=== PATIENT | female | born 1995 | race Caucasian/White ===

== ENCOUNTER 2018-02-19 19:33 | Emergency (ER) | payer OTHER ==
--- NOTE | 2018-02-19 20:00 | PDOC ---
Rapid Medical Evaluation Time Seen by Provider: 02/19/18 19:48 Medical Evaluation: Allergies Allergy/AdvReac Type Severity Reaction Status Date / Time No Known Drug Allergies Allergy Verified 02/13/14 04:46 02/19/18 19:59 I have performed a brief in-person evaluation of this patient. The patient presents with a chief complaint of: right ear pain for 4 days Pertinent physical exam findings: No tenderness over tragus or mastoid. I have ordered the following: nothing The patient will proceed to the ED for further evaluation. Discharge Disposition - Diagnosis Ear pain, right - Referrals - Patient Instructions - Post Discharge Activity
[2018-02-19 20:05] VITALS: BP 109/62; PULSE 63; TEMP 97.5; BMI 21.7
--- NOTE | 2018-02-19 20:32 | PDOC ---
History of Present Illness - General Chief Complaint: Pain Stated Complaint: EAR PAIN Time Seen by Provider: 02/19/18 19:48 - History of Present Illness Initial Comments: 22-year-old female with bilateral ear pain 4 weeks and decreased hearing with no associated symptoms. 02/19/18 20:24 Past History - Past Medical History Allergies/Adverse Reactions: Allergies Allergy/AdvReac Type Severity Reaction Status Date / Time No Known Drug Allergies Allergy Verified 02/13/14 04:46 Home Medications: Ambulatory Orders Cetirizine HCl/Pseudoephedrine [Zyrtec-D Tablet] 1 each PO DAILY #30 tab.er.12h 02/19/18 Ciprofloxacin HCl 1 drop BID 7 Days #2.5 ml 02/19/18 Asthma: No Cancer: No Cardiac Disorders: No COPD: No Diabetes: No HTN: No Seizures: No Thyroid Disease: No - Suicide/Smoking/Psychosocial Hx Smoking History: Never smoked Have you smoked in the past 12 months: No Information on smoking cessation initiated: No Hx Alcohol Use: No Drug/Substance Use Hx: No Hx Substance Use Treatment: No Review of Systems - Review of Systems HEENTM: Yes: Ear Pain All Other Systems: Reviewed and Negative *Physical Exam - Vital Signs Last Vital Signs Temp Pulse Resp BP Pulse Ox 97.5 F L 63 20 109/62 99 02/19/18 20:01 02/19/18 20:01 02/19/18 20:01 02/19/18 20:01 02/19/18 20:01 - Physical Exam Comments: GENERAL: The patient is awake, alert, and fully oriented, in no acute distress. HEAD: Normal with no signs of trauma. EYES: Pupils equal, round and reactive to light, extraocular movements intact, sclera anicteric, conjunctiva clear. ENT: The right tympanic membrane and ear canal is normal the left ear canal is normal the tympanic membrane is obstructed by a cerumen plug, nares patent, oropharynx clear without exudates. Moist mucous membranes. NECK: Normal range of motion, supple without lymphadenopathy, JVD, or masses. LUNGS: Breath sounds equal, clear to auscultation bilaterally. No wheezes, and no crackles. HEART: Regular rate and rhythm, normal S1 and S2 without murmur, rub or gallop. ABDOMEN: Soft, nontender, normoactive bowel sounds. No guarding, no rebound. No masses. EXTREMITIES: Normal range of motion, no edema. No clubbing or cyanosis. No cords, erythema, or tenderness. NEUROLOGICAL: Cranial nerves II through XII grossly intact. Normal speech, normal gait. PSYCH: Normal mood, normal affect. SKIN: Warm, Dry, normal turgor, no rashes or lesions noted. 02/19/18 20:25 Medical Decision Making - Medical Decision Making The left ear canal was flushed out with hydrogen peroxide part of the cerumen plug was removed the tympanic membrane was normal her ear canal is irritated from cerumen removal. I will place her on eardrops to prevent infection and decongestant 02/19/18 20:25 02/19/18 20:32 Pt states there is no chance she is *DC/Admit/Observation/Transfer Diagnosis at time of Disposition: Ear pain, right, Cerumen impaction, Seasonal allergies - Discharge Dispostion Disposition: HOME Condition at time of disposition: Stable Decision to Admit order: No - Referrals Referrals: Fern Oh MD [Primary Care Provider] - Timi Coelho MD [Non Staff, Medical] - Iggy Rojo MD [Staff Physician] - Valdemar Carias MD [Non Staff, Medical] - Josué Diane MD [Non Staff, Medical] - Fidencio Magaña [Non Staff, Medical] - Janessa Garcia MD [Non Staff, Medical] - - Patient Instructions Printed Discharge Instructions: DI for Cerumen Impaction, Cerumen Impaction, Allergic Rhinitis Additional Instructions: I believe he has seasonal ALLERGIES. I've given you a decongestant which should help with your congestive symptoms in your ears. He also had a large piece of wax in your left ear which I removed part of. During the removal your ear canal was irritated I prescribed few an antibiotic drop it's important few to follow- up with an ear nose and throat doctor for further evaluation and treatment management. Take the drops as prescribed. - Post Discharge Activity
== END 2018-02-19 20:34 | disposition home or self-care (01) ==
LOC: JERFT 19:33
PROC: 3E1B78Z Irrigation of Ear using Irrigating Substance, Via Natural or Artificial Opening (ICD-10-PCS; principal; 2018-02-19)
DX: H61.22 Impacted cerumen, left ear (principal); J30.2 Other seasonal allergic rhinitis
CPT/HCPCS: 99281-25

== ENCOUNTER 2018-07-02 09:10 | Emergency (ER) | payer OTHER ==
[2018-07-02 09:14] VITALS: BP 100/66; PULSE 60; TEMP 97.9; BMI 21.7
[2018-07-02] MEDS ORDERED: KETOROLAC TROMETHAMINE 60 MG/2 ML VIAL IM ONE (10:29)
--- NOTE | 2018-07-02 10:41 | PDOC ---
History of Present Illness - General Chief Complaint: Back Pain Stated Complaint: BACK PAIN Time Seen by Provider: 07/02/18 10:29 History Source: Patient Exam Limitations: No Limitations - History of Present Illness Initial Comments: 07/02/18 10:37 23 y/o female presents to the ED with c/o sharp intermittent low back pain since last night. Patient states history of low back pain since her last but has not followed up with her PMD or taken medication with discomfort. The patient denies abdominal pain, nausea, weakness, parasthesia, saddle anesthesia, or incontinence. Occurred: reports: yesterday (evening) Severity: reports: mild Pain Location: reports: back Method of Injury: Yes: other Modifying Factors: improves with: None Associated Symptoms (Fall): denies symptoms Past History - Past Medical History Allergies/Adverse Reactions: Allergies Allergy/AdvReac Type Severity Reaction Status Date / Time No Known Drug Allergies Allergy Verified 07/02/18 09:13 Home Medications: Ambulatory Orders NK [No Known Home Medication] 07/02/18 Asthma: No Cancer: No Cardiac Disorders: No COPD: No Diabetes: No HTN: No Seizures: No Thyroid Disease: No - Suicide/Smoking/Psychosocial Hx Smoking History: Never smoked Have you smoked in the past 12 months: No Information on smoking cessation initiated: No Hx Alcohol Use: No Drug/Substance Use Hx: No Substance Use Type: None Hx Substance Use Treatment: No Patient Lives Alone: No Lives with/in: spouse/SO Trauma Specific PMHX - Complaint Specific PMHX Back Injury: Yes Review of Systems - Review of Systems Able to Perform ROS?: Yes Constitutional: No: Symptoms Reported Musculoskeletal: Yes: Back Pain. No: Joint Pain Integumentary: No: Symptoms Reported Neurological: No: Symptoms reported *Physical Exam - Vital Signs Last Vital Signs Temp Pulse Resp BP Pulse Ox 97.9 F 60 18 100/66 100 07/02/18 09:11 07/02/18 09:11 07/02/18 09:11 07/02/18 09:11 07/02/18 09:11 - Physical Exam General Appearance: Yes: Nourished, Appropriately Dressed. No: Apparent Distress Neck: positive: Supple. negative: Tender, Decreased range of motion Respiratory/Chest: positive: Lungs Clear, Normal Breath Sounds Gastrointestinal/Abdominal: positive: Soft. negative: Tenderness Musculoskeletal: positive: Vertebral Tenderness (l4 and left paraspinous at l2- 5 level). negative: Decreased Range of Motion Extremity: positive: Normal Capillary Refill, Normal Inspection, Normal Range of Motion Integumentary: positive: Normal Color, Warm, Moist Neurologic: positive: Normal Mood/Affect, Motor Strength 5/5 (ambulatory) ED Treatment Course - RADIOLOGY Radiology Studies Ordered: Category Date Time Status SPINE-LUMBAR ONLY [RAD] Stat Radiology 07/02/18 10:29 Ordered Medical Decision Making - Medical Decision Making 07/02/18 10:44 CC: low back pain since yesterday evening after getting out of bed Exam: l4 and left paraspinous tenderness Plan: toradol im and lumbar xray 07/02/18 11:35 Xray shows scoliosis. Patient ordered for motrin for discharge and a referral to Dr. Griggs *DC/Admit/Observation/Transfer Diagnosis at time of Disposition: Scoliosis Qualifiers: Scoliosis type: unspecified scoliosis Spinal region: lumbar Qualified Code(s): M41.9 - Scoliosis, unspecified - Discharge Dispostion Disposition: HOME Condition at time of disposition: Good - Referrals Referrals: Grover Shipley MD, [facility] [Staff Physician] - - Patient Instructions Printed Discharge Instructions: Scoliosis-Adult Additional Instructions: Please follow up with referred physician. May take Motrin for pain. - Post Discharge Activity
[2018-07-02] MEDS ORDERED: KETOROLAC TROMETHAMINE 60 MG/2 ML VIAL ONE (10:51)
== END 2018-07-02 11:40 | disposition home or self-care (01) ==
LOC: JERFT 09:10
PROC: 3E0233Z Introduction of Anti-inflammatory into Muscle, Percutaneous Approach (ICD-10-PCS; principal; 2018-07-02)
DX: M41.9 Scoliosis, unspecified (principal)
CPT/HCPCS: 72100-TC-FY; 96372; 99281-25

== ENCOUNTER 2019-02-16 14:24 | Emergency (ER) | payer OTHER ==
[2019-02-16 14:30] VITALS: BP 117/77; PULSE 63; TEMP 98.4; BMI 19.9
[2019-02-16] MEDS ORDERED: IBUPROFEN 400 MG TABLET (FP) PO ONE ×2 (14:30→14:56)
[2019-02-16] MEDS ORDERED: DIPHTH,PERTUSS(ACELL),TET 0.5 ML DISP.SYRIN IM ONE ×2 (14:30→14:56)
--- NOTE | 2019-02-16 14:32 | PDOC ---
History of Present Illness - General Chief Complaint: Injury Stated Complaint: LEFT 3RD FINGER INJURY Time Seen by Provider: 02/16/19 14:29 - History of Present Illness Initial Comments: 02/16/19 14:30 Ms. Martines is a 23 yo female w/ no significant pmh who presents for evaluation of L third finger injury. 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 Currently complaining of pain to laceration site only. Cannot recall last tetanus shot. No other complaints at this time. The patient denies chest pain, shortness of breath, headache and dizziness. Denies fever, chills, nausea, vomit, diarrhea and constipation. Denies dysuria, frequency, urgency and hematuria. Past History - Past Medical History Allergies/Adverse Reactions: Allergies Allergy/AdvReac Type Severity Reaction Status Date / Time No Known Drug Allergies Allergy Verified 02/16/19 14:27 Home Medications: Ambulatory Orders Cephalexin [Keflex] 500 mg PO TID #15 capsule 02/16/19 Asthma: No Cancer: No Cardiac Disorders: No COPD: No Diabetes: No HTN: No Seizures: No Thyroid Disease: No Other medical history: DENIES - Suicide/Smoking/Psychosocial Hx Smoking History: Never smoked Have you smoked in the past 12 months: No Information on smoking cessation initiated: No Hx Alcohol Use: (weekly) Drug/Substance Use Hx: No Substance Use Type: None Hx Substance Use Treatment: No Review of Systems - Review of Systems Comments:: 02/16/19 14:30 GENERAL/CONSTITUTIONAL: No fever or chills. No weakness. HEAD, EYES, EARS, NOSE AND THROAT: No change in vision. No ear pain or discharge. No sore throat. CARDIOVASCULAR: No chest pain or shortness of breath RESPIRATORY: No cough, wheezing, or hemoptysis. GASTROINTESTINAL: No nausea, vomiting, diarrhea or constipation. GENITOURINARY: No dysuria, frequency, or change in urination. MUSCULOSKELETAL: +Pain to L third finger at laceration site. No joint or muscle swelling or pain. No neck or back pain. SKIN: No rash NEUROLOGIC: No headache, vertigo, loss of consciousness, or change in strength/ sensation. ENDOCRINE: No increased thirst. No abnormal weight change HEMATOLOGIC/LYMPHATIC: No anemia, easy bleeding, or history of blood clots. ALLERGIC/IMMUNOLOGIC: No hives or skin allergy. *Physical Exam - Vital Signs Last Vital Signs Temp Pulse Resp BP Pulse Ox 98.4 F 63 18 117/77 100 02/16/19 14:24 02/16/19 14:24 02/16/19 14:24 02/16/19 14:24 02/16/19 14:24 - Physical Exam Comments: 02/16/19 14:30 GENERAL: Awake, alert, and fully oriented, in no acute distress HEAD: No signs of trauma, normocephalic, atraumatic EYES: PERRLA, EOMI, sclera anicteric, conjunctiva clear ENT: Auricles normal inspection, hearing grossly normal, nares patent, oropharynx clear without exudates. Moist mucosa NECK: Normal ROM, supple, no lymphadenopathy, JVD, or masses LUNGS: No distress, speaks full sentences, clear to auscultation bilaterally HEART: Regular rate and rhythm, normal S1 and S2, no murmurs, rubs or gallops, peripheral pulses normal and equal bilaterally. ABDOMEN: Soft, nontender, normoactive bowel sounds. No guarding, no rebound. No masses EXTREMITIES: +Small laceration to lateral side of L third finger noted c/w history. Otherwise normal inspection, Normal range of motion, no edema. No clubbing or cyanosis. NEUROLOGICAL: Cranial nerves II through XII grossly intact. Normal speech, normal gait, no focal sensorimotor deficits SKIN: Warm, Dry, normal turgor, no rashes or lesions noted. Procedures - Laceration/Wound Repair Left Distal 5th digit Wound Length: to 2.5 cm Wound Explored: clean Wound's Depth, Shape: superficial, irregular Betadine Prep: Yes Anesthesia: 1% Lidocaine Amount of Anesthetic (ccs): 4 Wound Debrided: minimal Wound Repaired With: Sutures Suture Size/Type: 5:0 Number of Sutures: 7 Sterile Dressing Applied: Yes Splint Applied: Yes Medical Decision Making - Medical Decision Making 02/16/19 15:34 Ms. Martines is a 23 yo female w/ pmh as described who presents for evaluation of laceration. Patient tetanus status updated as patient unsure of last immunization. Patient pain controlled w/ oral motrin and finger block. Patient laceration repaired w/out difficulty as above. Discharging on oral keflex for prophylaxis and patient will f/u in 1 week for further evaluation. Discharging to home. *DC/Admit/Observation/Transfer Diagnosis at time of Disposition: Laceration - Discharge Dispostion Disposition: HOME Condition at time of disposition: Stable - Prescriptions Prescriptions: Cephalexin [Keflex] 500 mg PO TID #15 capsule - Referrals - Patient Instructions Printed Discharge Instructions: DI for Suture Removal Additional Instructions: You were evaluated today in the ER for your laceration. We repaired your wound with sutures and sent a prescription for antibiotics to your pharmacy. You may take over the counter motrin or tylenol per package instructions for pain control as needed. Please take all medications as proscribed. Return to ER in 1 week for suture removal. Return immediately if any fever, chills, pus, increase in pain, or other concerning symptoms. Fuiste evaluado hoy en la lisa de emergencias por tu laceracin. Reparamos chin herida con suturas y enviamos ozzie receta de antibiticos a chin farmacia. Puede ethel el contador de motrin o tylenol segn las instrucciones del paquete para controlar el dolor, segn sea necesario. Por favor, tome todos los medicamentos anthony proscribe. Regrese a la lisa de emergencias en 1 semana para retirar la sutura. Regrese inmediatamente si presenta fiebre, escalofros, pus, aumento del dolor u otros sntomas relacionados. Print Language: VIETNAMESE - Post Discharge Activity Forms/Work/School Notes: Back to Work
--- NOTE | 2019-02-16 15:05 | PDOC ---
Attending Attestation - Resident Resident Name: Jose Manuel Veliz - ED Attending Attestation I have performed the following: I have examined & evaluated the patient, The case was reviewed & discussed with the resident, I agree w/resident's findings & plan, Exceptions are as noted - HPI HPI: 02/16/19 15:05 23-year-old female right-hand dominant patient with no medical problems presents with injury to third left digit. 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 There is no tendon exposure. Patient reports intact sensation and is able to fully flex and extend the digit. Patient reported that the bleeding was persistent so came to the ER. Last tetanus shot is unknown. - Physicial Exam PE: 02/16/19 15:07 GENERAL: Awake, alert, and fully oriented, in no acute distress HEAD: No signs of trauma EYES: EOMI, sclera anicteric, conjunctiva clear ENT: Auricles normal inspection, hearing grossly normal, nares patent, Moist mucosa EXTREMITIES: Normal range of motion, no edema. No clubbing or cyanosis. No cords, erythema, or tenderness LUE: 2+ radial pulse. Sensation and strength intact throughout the median/ulnar/ radial nerve. < 2 sec cap refill. U shaped partial avulsion distal tip of 3rd digit, approx 1 cm NEUROLOGICAL: Cranial nerves II through XII grossly intact. Normal speech, normal gait SKIN: Warm, Dry, normal turgor, no rashes or lesions noted. - Medical Decision Making 02/16/19 15:14 Vital Signs Temp Pulse Resp BP Pulse Ox 98.4 F 63 18 117/77 100 02/16/19 14:24 02/16/19 14:24 02/16/19 14:24 02/16/19 14:24 02/16/19 14:24 Update tetanus. Wound irrigation. Suture repair Fever and scar precautions. 02/16/19 15:40 Dr. Veliz provided a digital block. 7 5-0 nylon interrupted sutures placed. Covered in bacitracin and covered in finger splint. Pt to return to the ER in 7 to 10 days for suture removal. Return precautions given included infection precautions.
[2019-02-16] MEDS ORDERED: CEPHALEXIN MONOHYDRATE 500 MG CAPSULE (UD) PO ONE (15:32)
[2019-02-16] MEDS ORDERED: CEPHALEXIN MONOHYDRATE 500 MG CAPSULE (UD) ONE (15:39)
== END 2019-02-16 15:49 | disposition home or self-care (01) ==
LOC: FER 14:24
PROC: 0HQGXZZ Repair Left Hand Skin, External Approach (ICD-10-PCS; principal; 2019-02-16)
PROC: 3E0234Z Introduction of Serum, Toxoid and Vaccine into Muscle, Percutaneous Approach (ICD-10-PCS; 2019-02-16)
DX: R05 Cough (principal); S61.213A Laceration without foreign body of left middle finger without damage to nail, initial encounter; W26.0XXA Contact with knife, initial encounter; Y93.G1 Activity, food preparation and clean up; Y92.89 Other specified places as the place of occurrence of the external cause; Y99.0 Civilian activity done for income or pay
CPT/HCPCS: 90715; 99282-25

== ENCOUNTER 2019-02-23 14:47 | Emergency (ER) | payer OTHER ==
[2019-02-23 14:58] VITALS: BP 104/47; PULSE 74; TEMP 98.3; BMI 23.1
--- NOTE | 2019-02-23 15:29 | PDOC ---
Suture Removal/Wound Check HPI - History of Present Illness Chief Complaint: Suture/Staple Removal(Here) Stated Complaint: SUTURE REMOVAL Time Seen by Provider: 02/23/19 15:28 - Onset of Previous Treatment Comment:: 02/25/19 09:11 Sutures removed from index finger. Wound well-healed. No tenderness, erythema, warmth, or drainage. Instructed to continue his bacitracin and Band-Aid for 1 more week until skin become softer. Recheck if sign of infection. Past History - Past Medical History Allergies/Adverse Reactions: Allergies Allergy/AdvReac Type Severity Reaction Status Date / Time No Known Drug Allergies Allergy Verified 02/23/19 14:48 Home Medications: Ambulatory Orders NK [No Known Home Medication] 02/23/19 Asthma: No Cancer: No Cardiac Disorders: No COPD: No Diabetes: No HTN: No Seizures: No Thyroid Disease: No - Immunization History Immunization Up to Date: Yes - Suicide/Smoking/Psychosocial Hx Smoking History: Never smoked Have you smoked in the past 12 months: No Information on smoking cessation initiated: No Hx Alcohol Use: (weekly) Drug/Substance Use Hx: No Substance Use Type: None Hx Substance Use Treatment: No *Physical Exam - Vital Signs Last Vital Signs Temp Pulse Resp BP Pulse Ox 98.3 F 74 20 104/47 L 100 02/23/19 14:47 02/23/19 14:47 02/23/19 14:47 02/23/19 14:47 02/23/19 14:47 *DC/Admit/Observation/Transfer Diagnosis at time of Disposition: Visit for suture removal - Discharge Dispostion Disposition: HOME Condition at time of disposition: Improved Decision to Admit order: No - Referrals - Patient Instructions Printed Discharge Instructions: DI for Suture Removal - Post Discharge Activity
== END 2019-02-23 15:34 | disposition home or self-care (01) ==
LOC: FER 14:47
DX: Z48.02 Encounter for removal of sutures (principal)
CPT/HCPCS: 99281-25

== ENCOUNTER 2022-02-01 16:41 | Emergency (ER) | payer OTHER ==
[2022-02-01 17:04] VITALS: BP 109/70; PULSE 73; TEMP 99.2; BMI 25.0
[2022-02-01 17:33] LABS: HCG,QUALITATIVE URINE Positive
[2022-02-01 17:41] LABS: HEMATOCRIT 33.4 % (32.4-45.2); HEMOGLOBIN 11.8 G/dL (10.7-15.3); MCH 31.4 pg (25.7-33.7); MCHC 35.4 g/dl (32.0-36.0); MEAN CELL VOLUME 88.5 fl (80-96); MEAN PLT VOLUME 10.5 fl (7.5-11.1); PLATELET COUNT 184.7 10^3/uL (134-434); RBC 3.77 10^6/uL (3.60-5.2); RDW 13.8 % (11.6-15.6); WHITE BLOOD COUNT 8.6 10^3/uL (4.0-10.8)
[2022-02-01 18:12] LABS: ALBUMIN 3.9 g/dl (3.4-5.0); BILIRUBIN,TOTAL 0.5 mg/dl (0.2-1); CALCIUM 9.2 mg/dl (8.5-10); CREATININE 0.5 mg/dl (0.55-1.3); TOT PROT 6.5 g/dl (6.4-8.2)
== END 2022-02-01 19:33 | disposition home or self-care (01) ==
LOC: FER 16:41
DX: R10.32 Left lower quadrant pain (principal)
CPT/HCPCS: 36415; 76801-TC; 80053; 81003; 81015; 84703; 85027; 86850; 86900; 86901; 87077; 87086; 99284-25

== ENCOUNTER 2022-09-06 12:03 | Inpatient (IN) | payer OTHER ==
[2022-09-06] MEDS: DEXTROSE 5%-LACTATED RINGERS 1,000 ML IV SCH ×2 (12:45→19:30)
[2022-09-06 13:13] LABS: BASO % 0.6 % (0-2.0); EOS % 0.8 % (0-4.5); HEMATOCRIT 38.1 % (32.4-45.2); HEMOGLOBIN 12.4 GM/dL (10.7-15.3); LYMPH % 17.3 % (8-40); MCHC 32.7 g/dl (32.0-36.0); MEAN CELL VOLUME 91.7 fl (80-96); MEAN PLT VOLUME 12.8 fl (7.5-11.1); MONO % 8.5 % (3.8-10.2); NEUT % 72.8 % (42.8-82.8); PLATELET COUNT 100 10^3/uL (134-434); RBC 4.15 M/mm3 (3.60-5.2); RDW 14.1 % (11.6-15.6); WHITE BLOOD COUNT 7.5 K/mm3 (4.0-10.0)
[2022-09-06 13:24] VITALS: BMI 29.2
[2022-09-06 13:32] LABS: CALCIUM 8.9 mg/dL (8.5-10.1)
[2022-09-06 13:33] LABS: BLOOD UREA NITROGEN 11.5 mg/dL (7-18)
[2022-09-06 13:36] LABS: CREATININE 0.7 mg/dL (0.55-1.3)
[2022-09-06 13:38] LABS: ACTIVATED PTT 28.1 SECONDS (25.2-36.5)
[2022-09-06 13:49] LABS: INR 0.91 (0.83-1.09); PROTHROMBIN TIME (PATIENT) 10.4 SEC (9.7-13.0)
[2022-09-06] MEDS ORDERED: DINOPROSTONE 10 MG VAGINAL SUPPOSITORY VG ONE (14:23)
[2022-09-06] MEDS ORDERED: BUTORPHANOL TARTRATE 2 MG/ML VIAL IVPUSH PRN (15:33)
[2022-09-06] MEDS ORDERED: PROMETHAZINE HCL 25 MG/1 ML VIAL IVPUSH ONE (15:33)
[2022-09-07] MEDS ORDERED: OXYTOCIN 30 UNITS in 0.9% NS 30 UNIT/500 ML INFUS.BAG IVPB SCH (03:20)
[2022-09-07] MEDS ORDERED: OXYTOCIN 30 UNITS in 0.9% NS 30 UNIT/500 ML INFUS.BAG IVPB ONE (03:38)
[2022-09-07] MEDS: DEXTROSE 5%-LACTATED RINGERS 1,000 ML IV SCH ×2 (05:00→16:48)
[2022-09-07] MEDS ORDERED: ELECTROLYTE-148 SOLN 1,000 ML IV SCH ×2 (08:15→11:30)
[2022-09-07] MEDS ORDERED: FENTANYL/BUPIVACAINE/NS/PF - PCEA - 50 ML DISP.SYRIN EP ONE (08:34)
[2022-09-07 09:02] LABS: BASO % 0.7 % (0-2.0); HEMATOCRIT 40.9 % (32.4-45.2); HEMOGLOBIN 13.3 GM/dL (10.7-15.3); LYMPH % 29.5 % (8-40); MCH 29.9 pg (25.7-33.7); MCHC 32.6 g/dl (32.0-36.0); MEAN CELL VOLUME 91.8 fl (80-96); MEAN PLT VOLUME 11.9 fl (7.5-11.1); MONO % 6.7 % (3.8-10.2); NEUT % 62.1 % (42.8-82.8); PLATELET COUNT 91 10^3/uL (134-434); RBC 4.46 M/mm3 (3.60-5.2); RDW 14.3 % (11.6-15.6)
[2022-09-07] MEDS ORDERED: NALOXONE HCL 0.4 MG/ML VIAL IVPUSH PRN (10:23)
[2022-09-07] MEDS ORDERED: FENTANYL/BUPIVACAINE/NS/PF - PCEA - 50 ML DISP.SYRIN EP SCH ×2 (10:30→11:16)
[2022-09-07] MEDS ORDERED: LIDOCAINE HCL 1% PRESERVATIVE FREE - 30ML VIAL ONE (13:59)
[2022-09-07] MEDS ORDERED: OXYTOCIN 20 UNITS in 0.9% NS 20 UNIT/1,000 ML INFUS.BAG IV ONE (13:59)
[2022-09-07] MEDS ORDERED: BENZOCAINE 28 GM HEMORRHOIDAL OINTMENT TP PRN (14:19)
[2022-09-07] MEDS ORDERED: BISACODYL 10 MG SUPP.RECT RC PRN (14:19)
[2022-09-07] MEDS ORDERED: oxyCODONE HCL 5 MG TABLET PO PRN (14:19)
[2022-09-07] MEDS ORDERED: ACETAMINOPHEN 325 MG TABLET (FP) PO PRN (14:19)
[2022-09-07] MEDS ORDERED: BENZOCAINE 20% 57 GM BOTTLE TP PRN (14:19)
[2022-09-07] MEDS ORDERED: METHYLERGONOVINE MALEATE 0.2 MG/1 ML AMP IM PRN (14:19)
[2022-09-07] MEDS ORDERED: WITCH HAZEL 50% (TUCKS) 40 PAD/JAR PAD TP PRN (14:19)
[2022-09-07] MEDS ORDERED: IBUPROFEN 600 MG TABLET (FP) PO PRN (14:19)
[2022-09-07] MEDS ORDERED: METHYLERGONOVINE MALEATE 0.2 MG/1 ML AMP IM ONE (14:20)
[2022-09-07] MEDS ORDERED: OXYTOCIN 20 UNITS in 0.9% NS 20 UNIT/1,000 ML INFUS.BAG IV SCH (14:30)
[2022-09-07 15:02] LABS: CORD BASE EXCESS -4.1 mmol/L (0-2); CORD HCO3 20.8 mmHg (20-29); CORD PCO2 37.8 mmHg (30-78); CORD pH 7.358 (7.14-7.44)
[2022-09-07 15:05] LABS: CORD HCO3 22.9 mmHg (20-29); CORD PCO2 48.3 mmHg (30-78); CORD pH 7.294 (7.14-7.44)
[2022-09-08 07:48] LABS: BASO % 0.3 % (0-2.0); EOS % 0.8 % (0-4.5); HEMATOCRIT 34.8 % (32.4-45.2); HEMOGLOBIN 11.7 GM/dL (10.7-15.3); LYMPH % 19.2 % (8-40); MCH 30.8 pg (25.7-33.7); MCHC 33.6 g/dl (32.0-36.0); MEAN CELL VOLUME 91.6 fl (80-96); MEAN PLT VOLUME 11.8 fl (7.5-11.1); MONO % 5.7 % (3.8-10.2); PLATELET COUNT 76 10^3/uL (134-434); RDW 14.5 % (11.6-15.6)
[2022-09-08] MEDS ORDERED: SENNOSIDES/DOCUSATE COMBO (SENNA PLUS) TABLET (UD) PO PRN (22:00)
[2022-09-09 11:21] VITALS: BP 114/71; PULSE 66; RESP 17; TEMP 97.7
== END 2022-09-09 12:15 | disposition home or self-care (01) | DRG 560 ==
LOC: JLDR 12:03 → J3W 09-07 17:38
PROVIDERS: ADMIT Obstetrics & Gynecology; ATTEND Obstetrics & Gynecology
PROC: 10E0XZZ Delivery of Products of Conception, External Approach (ICD-10-PCS; principal; 2022-09-07)
DX: O99.12 Other diseases of the blood and blood-forming organs and certain disorders involving the immune mechanism complicating childbirth (principal); Z3A.38 38 weeks gestation of pregnancy; Z37.0 Single live birth
CPT/HCPCS: 36415; 36600; 59409; 80048; 82803; 85025; 85610; 85730; 86780; 86850; 86900; 86901; C9803-CS; U0003; U0005

== ENCOUNTER 2024-01-01 04:11 | Day surgery (SDC) | payer OTHER ==
[2023-12-26 16:08] VITALS: BMI 24.3
[2024-01-01] MEDS ORDERED: SODIUM CHLORIDE 0.9% P/F 10 ML VIAL IJ ONE (07:11)
[2024-01-01] MEDS ORDERED: ePHEDrine SULFATE 50 MG/1 ML AMPULE ONE (07:11)
[2024-01-01] MEDS ORDERED: KETOROLAC TROMETHAMINE 30 MG/1 ML VIAL ONE (07:11)
[2024-01-01] MEDS ORDERED: ONDANSETRON 4 MG/2 ML VIAL ONE (07:11)
[2024-01-01] MEDS ORDERED: LIDOCAINE HCL/PF 2% SDV 5ML VIAL ONE (07:11)
[2024-01-01] MEDS ORDERED: DEXAMETHASONE SOD PHOSPHATE 4 MG/1 ML VIAL ONE (07:11)
[2024-01-01] MEDS ORDERED: SUCCINYLCHOLINE CHLORIDE 200 MG/10 ML SYRINGE ONE (07:11)
[2024-01-01] MEDS ORDERED: PROPOFOL 40 ML ONE (07:12)
[2024-01-01] MEDS ORDERED: MIDAZOLAM HCL 2 MG/2 ML SINGLE DOSE VIAL ONE (07:13)
[2024-01-01] MEDS ORDERED: FENTANYL CITRATE/PF 50 MCG/ML VIAL ONE (07:13)
[2024-01-01] MEDS ORDERED: ACETAMINOPHEN INJECTION 100 ML IVPB ONE (07:31)
[2024-01-01] MEDS ORDERED: BUPIVACAINE HCL/PF 0.25% (2.5MG/ML) 10 ML VIAL ONE (07:31)
[2024-01-01] MEDS: BUPIVACAINE HCL/PF 0.25% (2.5MG/ML) 10 ML VIAL IJ ONE (08:03)
[2024-01-01] MEDS ORDERED: SUGAMMADEX SODIUM 200 MG/2 ML VIAL ONE (08:20)
[2024-01-01] MEDS ORDERED: HYDROmorphone HCl 2 MG/ML VIAL ONE (08:23)
[2024-01-01] MEDS ORDERED: oxyCODONE HCL 5 MG TABLET PO PRN (08:53)
[2024-01-01] MEDS ORDERED: LACTATED RINGERS SOLUTION 1,000 ML IV SCH (09:00)
[2024-01-01 10:31] VITALS: PULSE 65; RESP 18
[2024-01-01 11:58] VITALS: BP 106/63; TEMP 97.8
== END 2024-01-01 11:50 | disposition home or self-care (01) ==
LOC: JASU-SURG 04:11
PROVIDERS: ATTEND Obstetrics & Gynecology
PROC: 0UB74ZZ Excision of Bilateral Fallopian Tubes, Percutaneous Endoscopic Approach (ICD-10-PCS; principal; 2024-01-01 07:30)
PROC: 0UPD7HZ Removal of Contraceptive Device from Uterus and Cervix, Via Natural or Artificial Opening (ICD-10-PCS; 2024-01-01 07:30)
DX: Z30.2 Encounter for sterilization (principal)
CPT/HCPCS: 81025; 88300-TC; 88305-TC; 94760; J0131